=== PATIENT | male | born 1960 | race Caucasian/White ===

== ENCOUNTER 2019-03-19 06:35 | Emergency (ER) | payer OTHER ==
[2019-03-19 07:18] LABS: Urine Appearance Clear; Urine Bacteria Absent (Absent); Urine Bilirubin Negative (Negative); Urine Blood 2+ (Negative); Urine Color Yellow; Urine Glucose Negative (Negative); Urine Ketones Negative (Negative); Urine Nitrite Negative (Negative); Urine Protein Negative (Negative); Urine Red Blood Cell 3+(>10/hpf) (Absent); Urine Specific Gravity 1.013 (1.010-1.030); Urine Squamous Epithelial Cell Present (Absent); Urine Urobilinogen Negative (Negative); Urine White Blood Cell Trace(0-5/hpf) (Absent)
--- NOTE | 2019-03-19 08:13 | ED ---
Abdominal Pain/Male - HPI Summary HPI Summary: Patient is a 58-year-old male with a history of kidney stones presenting to the ED with left-sided flank pain since last evening. He endorses 10/10 pain, acute onset, radiating to the left lower quadrant as an aching. He states just prior to arrival this morning into the ED, the symptoms have passed. He denies any gross hematuria. Denies any UTI symptoms. He is endorsing no pain at this time on arrival. He denies fevers, sweats, chills. He takes no medications denies any allergies. - History of Current Complaint Chief Complaint: EDFlankPain Stated Complaint: BACK PAIN PER PT Time Seen by Provider: 03/19/19 06:42 Hx Obtained From: Patient Onset/Duration: Sudden Onset Timing: Constant Severity Initially: Severe Severity Currently: None Pain Intensity: 8 Pain Scale Used: 0-10 Numeric Location: Flank - left Radiates: Yes Radiates to: LLQ Aggravating Factor(s): Nothing Alleviating Factor(s): Nothing Associated Signs And Symptoms: Positive: Negative - Risk Factors Testicular Torsion: Negative Cardiac Risk Factors: Negative - Allergies/Home Medications Allergies/Adverse Reactions: Allergies Allergy/AdvReac Type Severity Reaction Status Date / Time No Known Allergies Allergy Verified 03/19/19 06:37 PMH/Surg Hx/FS Hx/Imm Hx Previously Healthy: Yes - Surgical History Surgery Procedure, Year, and Place: eye surgery - Immunization History Hx Pertussis Vaccination: No Immunizations Up to Date: Yes Infectious Disease History: No Infectious Disease History: Denies: Traveled Outside the [place] in Last 30 Days - Social History Occupation: Employed Full-time Lives: With Family Alcohol Use: Occasionally Hx Substance Use: No Substance Use Type: Reports: None Hx Tobacco Use: No Smoking Status (MU): Never Smoked Tobacco Review of Systems Constitutional: Negative Negative: Fever, Chills, Fatigue, Skin Diaphoresis Negative: Palpitations, Chest Pain Negative: Shortness Of Breath, Cough Positive: Abdominal Pain - left flank pain Genitourinary: Negative Positive: no symptoms reported, see HPI Musculoskeletal: Negative Skin: Negative All Other Systems Reviewed And Are Negative: Yes Physical Exam Triage Information Reviewed: Yes Vital Signs On Initial Exam: Initial Vitals Temp Pulse Resp BP Pulse Ox 96.9 F 66 16 157/114 97 03/19/19 06:36 03/19/19 06:36 03/19/19 06:36 03/19/19 06:36 03/19/19 06:36 Vital Signs Reviewed: Yes Appearance: Positive: Well-Appearing, Well-Nourished Skin: Positive: Warm, Skin Color Reflects Adequate Perfusion Head/Face: Positive: Normal Head/Face Inspection Eyes: Positive: EOMI, Conjunctiva Clear Neck: Positive: Supple, No Lymphadenopathy Respiratory/Lung Sounds: Positive: Clear to Auscultation Cardiovascular: Positive: RRR Abdomen Description: Positive: Soft, Other: - left flank pain radiating to the LLQ Neurological: Positive: Normal, Sensory/Motor Intact Psychiatric: Positive: Affect/Mood Appropriate Diagnostics - Vital Signs Vital Signs Temp Pulse Resp BP Pulse Ox 03/19/19 06:36 96.9 F 66 16 157/114 97 - Laboratory Lab Results: Lab Results 03/19/19 Range/Units 06:54 Urine Color Yellow Urine Appearance Clear Urine pH 5.0 (5-9) Ur Specific Agness 1.013 (1.010-1.030) Urine Protein Negative (Negative) Urine Ketones Negative (Negative) Urine Blood 2+ A (Negative) Urine Nitrate Negative (Negative) Urine Bilirubin Negative (Negative) Urine Urobilinogen Negative (Negative) Ur Leukocyte Esterase Negative (Negative) Urine WBC (Auto) Trace(0-5/hpf) (Absent) Urine RBC (Auto) 3+(>10/hpf) A (Absent) Ur Squamous Epith Cells Present A (Absent) Urine Bacteria Absent (Absent) Urine Glucose Negative (Negative) Lab Statement: Any lab studies that have been ordered have been reviewed, and results considered in the medical decision making process. Abdominal Pain Male Course/Dx - Course Course Of Treatment: CT abdomen and pelvis obtained to assess for kidney stone. There is an impression of a very mild left hydronephrosis and more significant left perinephric and periureteral inflammatory stranding appears secondary to a 0.3 cm stone which has passed to the left ureter and is in the dependent portion of the urinary bladder. This is consistent with a recently passed stone and his diagnosis will be kidney stones. UA obtained which shows no obvious infection. There is hematuria. Patient states he is from out of town and is here for [employer] graduation. He states he would like to leave at this time. Patient is discharged home with kidney stones. - Diagnoses Provider Diagnoses: Kidney stone Discharge - Sign-Out/Discharge Documenting (check all that apply): Patient Departure Patient Received Moderate/Deep Sedation with Procedure: No - Discharge Plan Condition: Stable Disposition: HOME Referrals: No Primary Care Phys,NOPCP [Primary Care Provider] - - Billing Disposition and Condition Condition: STABLE Disposition: Home
[2019-03-19 08:16] VITALS: BP 145/88
== END 2019-03-19 08:10 | disposition home or self-care (01) ==
LOC: ED 06:35
DX: N20.0 Calculus of kidney (principal); R10.84 Generalized abdominal pain
CPT/HCPCS: 74176; 81003; 81015; 87086; 99282